=== PATIENT | female | born 1945 | race Caucasian/White ===

== ENCOUNTER 2017-09-25 12:58 | Inpatient (IN) | payer OTHER ==
[~2017-09-25] VITALS: Ht 177.8 cm; Wt 69.0 kg
[~2017-09-25 12:58] MED LIST: ALPR0.254 PO; AMIO200T42 PO; APIX5TAB PO; ASPI-496 PO; ENOX60SY4 SQ; FOLI-17 PO; HYDR-3240 PO; LISI5TAB7 PO; MESA1.2T PO; METH2.5T PO; OXYC-302 PO; SUMA100T4 PO; WARF5TAB PO
[2017-09-25] MEDS ORDERED: CHOL400C11 PO (13:07)
[2017-09-25] MEDS ORDERED: SODIUM CHLORIDE FLUSH 10ML SYR IVF ONE (13:30)
[2017-09-25] MEDS ORDERED: SODIUM CHLORIDE 0.9% 1,000ML IVBOLUS ONE (13:30)
[2017-09-25 13:33] LABS: BASOPHILS # (AUTO) 0.04 x10^3/uL (0-0.1); BASOPHILS % (AUTO) 1 % (0-1); EOSINOPHILS # (AUTO) 0.08 x10^3/uL (0-0.4); EOSINOPHILS % (AUTO) 1 % (1-7); LYMPHOCYTES # (AUTO) 0.64 x10^3/uL (1-3.4); LYMPHOCYTES % (AUTO) 9 % (22-44); MD NO; MEAN CORPUSCULAR HEMOGLOBIN 26.2 pg (27.0-34.8); MEAN CORPUSCULAR HGB CONC 32.8 g/dL (32.4-35.8); MEAN PLATELET VOLUME 7.3 fL (7.4-10.4); MONOCYTES # (AUTO) 0.43 x10^3/uL (0.2-0.8); MONOCYTES % (AUTO) 6 % (2-9); NEUTROPHILS # (AUTO) 5.89 x10^3/uL (1.8-6.8); NEUTROPHILS % (AUTO) 83 % (42-75); PLATELET COUNT 382 x10^3/uL (130-400); RED BLOOD COUNT 3.72 x10^6/uL (3.82-5.3); RED CELL DISTRIBUTION WIDTH 19.5 % (9.6-15.2)
[2017-09-25 13:40] LABS: ALANINE AMINOTRANSFERASE 82 U/L (12-78); ALBUMIN 2.5 g/dL (3.4-5.0); CHLORIDE 85 mmol/L (98-107); CREATININE 0.93 mg/dL (0.55-1.02)
[2017-09-25 13:44] LABS: ALKALINE PHOSPHATASE 110 U/L (45-117); BILIRUBIN,TOTAL 0.7 mg/dL (0.2-1.0); TOTAL PROTEIN 7.1 g/dL (6.4-8.2); TROPONIN I 0.026 ng/mL (0.000-0.045)
[2017-09-25 13:45] LABS: ANION GAP 10 mmol/L (5-15)
[2017-09-25 14:08] LABS: MICROSCOPIC INDICATED
[2017-09-25 14:30] LABS: CULTURE INDICATED? NO
[2017-09-25] MEDS ORDERED: ENOXAPARIN 40 MG/0.4 ML SQ SCH (16:00)
[2017-09-25] MEDS ORDERED: ONDANSETRON 2MG/ML, 2ML IVPush PRN (16:00)
[2017-09-25] MEDS ORDERED: ONDANSETRON ODT 4 MG PO PRN (16:00)
[2017-09-25] MEDS ORDERED: SUMATRIPTAN 100 MG TABLET PO PRN (16:30)
[2017-09-25 17:04] VITALS: BP 149/95
[2017-09-25] MEDS: SODIUM CHLORIDE 0.9% 1,000 ML IV SCH (17:08)
[2017-09-25 20:47] VITALS: BP 149/81
[2017-09-25] MEDS: MESALAMINE 1.2 GM TABLET.DR PO SCH (21:00)
[2017-09-25 22:09] LABS: CREATININE,URINE RANDOM 39.6 mg/dL
[2017-09-26 03:47] VITALS: BP 128/66
[2017-09-26] MEDS: SODIUM CHLORIDE 0.9% 1,000 ML IV SCH (04:20)
[2017-09-26 05:41] LABS: MEAN CORPUSCULAR HEMOGLOBIN 26.9 pg (27.0-34.8); MEAN CORPUSCULAR HGB CONC 32.8 g/dL (32.4-35.8); MEAN PLATELET VOLUME 7.6 fL (7.4-10.4); PLATELET COUNT 370 x10^3/uL (130-400); RED BLOOD COUNT 3.69 x10^6/uL (3.82-5.3); RED CELL DISTRIBUTION WIDTH 19.4 % (9.6-15.2)
[2017-09-26 05:46] LABS: CHLORIDE 92 mmol/L (98-107)
[2017-09-26 05:58] LABS: ALANINE AMINOTRANSFERASE 77 U/L (12-78); ALBUMIN 2.5 g/dL (3.4-5.0); ALKALINE PHOSPHATASE 109 U/L (45-117); ANION GAP 10 mmol/L (5-15); BILIRUBIN,TOTAL 0.7 mg/dL (0.2-1.0); CREATININE 0.85 mg/dL (0.55-1.02); TOTAL PROTEIN 7.2 g/dL (6.4-8.2)
[2017-09-26 06:06] LABS: CLOSTRIDIUM DIFFICILE ANTIGEN NEGATIVE; CLOSTRIDIUM DIFFICILE TOXIN NEGATIVE (Negative)
[2017-09-26 06:23] LABS: BASOPHILS # (AUTO) 0.01 x10^3/uL (0-0.1); BASOPHILS % (AUTO) 0 % (0-1); EOSINOPHILS # (AUTO) 0.09 x10^3/uL (0-0.4); EOSINOPHILS % (AUTO) 1 % (1-7); LYMPHOCYTES # (AUTO) 0.75 x10^3/uL (1-3.4); LYMPHOCYTES % (AUTO) 11 % (22-44); MD SCAN; MONOCYTES % (AUTO) 7 % (2-9); NEUTROPHILS % (AUTO) 81 % (42-75)
[2017-09-26 08:03] VITALS: BP 172/93
[2017-09-26 08:44] LABS: INTERNATIONAL NORMALIZED RATIO 1.09 (0.93-1.1); PROTHROMBIN TIME 11.2 Seconds (9.6-11.5)
[2017-09-26] MEDS: SENNA/DOCUSATE TABLET PO SCH ×2 (09:00→09:10)
[2017-09-26] MEDS ORDERED: APIXABAN 5 MG TABLET PO SCH (09:00)
[2017-09-26] MEDS: MESALAMINE 1.2 GM TABLET.DR PO SCH ×2 (09:00→16:30)
[2017-09-26] MEDS: AMIODARONE 200 MG TABLET PO SCH (09:08)
[2017-09-26] MEDS: FOLIC ACID 1 MG TABLET PO SCH (09:09)
[2017-09-26] MEDS: LISINOPRIL 5 MG TABLET PO SCH (09:10)
[2017-09-26] MEDS ORDERED: OMNIPAQUE 350 MG/ML, 100ML BOTTLE ONE (12:13)
[2017-09-26 13:28] LABS: ANION GAP 10 mmol/L (5-15); CALCIUM 7.9 mg/dL (8.5-10.1); CHLORIDE 88 mmol/L (98-107); CREATININE 0.85 mg/dL (0.55-1.02)
[2017-09-26 14:00] VITALS: BP 152/96
[2017-09-26] MEDS ORDERED: FENTANYL PF 100 MCG/2ML ONE (14:24)
[2017-09-26] MEDS ORDERED: NALOXONE 1 MG/ML, 2ML ONE (14:25)
[2017-09-26] MEDS ORDERED: HEPARIN 25,000 UNITS/500ML PMX 500 ML IV PRN (18:00)
[2017-09-26] MEDS ORDERED: HEPARIN 5,000 UNITS/ML, 1ML IV ONE (18:00)
[2017-09-26 19:32] VITALS: BP 161/85
[2017-09-27 02:14] VITALS: BP 174/109
[2017-09-27] MEDS: LABETALOL 5MG/ML, 20ML IVPush PRN (02:20)
[2017-09-27 02:43] VITALS: BP 147/85
[2017-09-27 02:46] LABS: BASOPHILS # (AUTO) 0.03 x10^3/uL (0-0.1); BASOPHILS % (AUTO) 1 % (0-1); EOSINOPHILS # (AUTO) 0.08 x10^3/uL (0-0.4); EOSINOPHILS % (AUTO) 1 % (1-7); LYMPHOCYTES # (AUTO) 0.66 x10^3/uL (1-3.4); LYMPHOCYTES % (AUTO) 12 % (22-44); MD NO; MEAN CORPUSCULAR HEMOGLOBIN 26.3 pg (27.0-34.8); MEAN CORPUSCULAR HGB CONC 32.5 g/dL (32.4-35.8); MEAN CORPUSCULAR VOLUME 80.9 fL (80-100); MEAN PLATELET VOLUME 7.2 fL (7.4-10.4); MONOCYTES # (AUTO) 0.45 x10^3/uL (0.2-0.8); MONOCYTES % (AUTO) 8 % (2-9); NEUTROPHILS # (AUTO) 4.37 x10^3/uL (1.8-6.8); NEUTROPHILS % (AUTO) 78 % (42-75); PLATELET COUNT 341 x10^3/uL (130-400); RED BLOOD COUNT 3.43 x10^6/uL (3.82-5.3); RED CELL DISTRIBUTION WIDTH 19.9 % (9.6-15.2)
[2017-09-27 02:47] LABS: ALBUMIN 2.4 g/dL (3.4-5.0); ANION GAP 10 mmol/L (5-15); CALCIUM 7.8 mg/dL (8.5-10.1); CHLORIDE 91 mmol/L (98-107); CREATININE 0.72 mg/dL (0.55-1.02)
[2017-09-27] MEDS: HEPARIN 5,000 UNITS/ML, 1ML IV PRN ×2 (03:38→11:15)
[2017-09-27 06:35] VITALS: BP 131/74
[2017-09-27] MEDS: MESALAMINE 1.2 GM TABLET.DR PO SCH ×2 (07:30→16:30)
[2017-09-27] MEDS ORDERED: MAGNESIUM SULFATE PMX 2GM/50ML 50 ML IV ONE (08:30)
[2017-09-27] MEDS: AMIODARONE 200 MG TABLET PO SCH (08:44)
[2017-09-27] MEDS: SENNA/DOCUSATE TABLET PO SCH (08:45)
[2017-09-27] MEDS: FOLIC ACID 1 MG TABLET PO SCH (08:45)
[2017-09-27] MEDS: LISINOPRIL 5 MG TABLET PO SCH (08:45)
[2017-09-27 14:15] VITALS: BP 138/85
[2017-09-27 15:38] LABS: ANION GAP 11 mmol/L (5-15); CALCIUM 7.7 mg/dL (8.5-10.1); CHLORIDE 86 mmol/L (98-107)
[2017-09-27 18:25] VITALS: BP 165/100
[2017-09-27 19:30] LABS: ANION GAP 10 mmol/L (5-15); CALCIUM 7.6 mg/dL (8.5-10.1); CHLORIDE 87 mmol/L (98-107); CREATININE 0.83 mg/dL (0.55-1.02)
[2017-09-27] MEDS: APIXABAN 5 MG TABLET PO SCH (21:48)
[2017-09-27 23:46] LABS: ANION GAP 7 mmol/L (5-15); CALCIUM 8.1 mg/dL (8.5-10.1); CHLORIDE 87 mmol/L (98-107); CREATININE 0.87 mg/dL (0.55-1.02)
[2017-09-28 00:24] LABS: CREATININE,URINE RANDOM 98.7 mg/dL
[2017-09-28 01:20] VITALS: BP 146/93
[2017-09-28 05:30] LABS: BASOPHILS # (AUTO) 0.01 x10^3/uL (0-0.1); BASOPHILS % (AUTO) 0 % (0-1); EOSINOPHILS # (AUTO) 0.07 x10^3/uL (0-0.4); EOSINOPHILS % (AUTO) 1 % (1-7); LYMPHOCYTES # (AUTO) 0.64 x10^3/uL (1-3.4); LYMPHOCYTES % (AUTO) 11 % (22-44); MD NO; MEAN CORPUSCULAR HEMOGLOBIN 27.1 pg (27.0-34.8); MEAN CORPUSCULAR HGB CONC 32.9 g/dL (32.4-35.8); MEAN CORPUSCULAR VOLUME 82.4 fL (80-100); MEAN PLATELET VOLUME 7.4 fL (7.4-10.4); MONOCYTES # (AUTO) 0.48 x10^3/uL (0.2-0.8); MONOCYTES % (AUTO) 8 % (2-9); NEUTROPHILS # (AUTO) 4.78 x10^3/uL (1.8-6.8); NEUTROPHILS % (AUTO) 80 % (42-75); PLATELET COUNT 346 x10^3/uL (130-400); RED BLOOD COUNT 3.28 x10^6/uL (3.82-5.3)
[2017-09-28 05:43] LABS: ALBUMIN 2.5 g/dL (3.4-5.0); ANION GAP 10 mmol/L (5-15); CALCIUM 7.8 mg/dL (8.5-10.1); CHLORIDE 88 mmol/L (98-107)
[2017-09-28 05:48] LABS: ALANINE AMINOTRANSFERASE 148 U/L (12-78); ALKALINE PHOSPHATASE 175 U/L (45-117); BILIRUBIN,TOTAL 0.5 mg/dL (0.2-1.0); CREATININE 0.79 mg/dL (0.55-1.02); TOTAL PROTEIN 7.1 g/dL (6.4-8.2)
[2017-09-28 07:00] VITALS: BP 148/91
[2017-09-28] MEDS: SENNA/DOCUSATE TABLET PO SCH (08:08)
[2017-09-28] MEDS: LISINOPRIL 5 MG TABLET PO SCH (08:08)
[2017-09-28] MEDS: AMIODARONE 200 MG TABLET PO SCH (08:08)
[2017-09-28] MEDS: FOLIC ACID 1 MG TABLET PO SCH (08:08)
[2017-09-28] MEDS: MESALAMINE 1.2 GM TABLET.DR PO SCH ×2 (08:08→17:36)
[2017-09-28] MEDS: APIXABAN 5 MG TABLET PO SCH ×2 (08:09→20:39)
[2017-09-28 12:15] VITALS: BP 154/92
[2017-09-28 14:36] LABS: ANION GAP 8 mmol/L (5-15); CALCIUM 8.1 mg/dL (8.5-10.1); CHLORIDE 87 mmol/L (98-107); CREATININE 0.92 mg/dL (0.55-1.02)
[2017-09-28 21:26] VITALS: BP 154/93
[2017-09-28 22:33] LABS: ANION GAP 7 mmol/L (5-15); CALCIUM 7.9 mg/dL (8.5-10.1); CHLORIDE 87 mmol/L (98-107); CREATININE 0.85 mg/dL (0.55-1.02)
[2017-09-29 03:04] VITALS: BP 153/82
[2017-09-29 05:17] LABS: BASOPHILS # (AUTO) 0.02 x10^3/uL (0-0.1); BASOPHILS % (AUTO) 0 % (0-1); EOSINOPHILS # (AUTO) 0.09 x10^3/uL (0-0.4); EOSINOPHILS % (AUTO) 1 % (1-7); LYMPHOCYTES # (AUTO) 0.68 x10^3/uL (1-3.4); LYMPHOCYTES % (AUTO) 11 % (22-44); MD NO; MEAN CORPUSCULAR HEMOGLOBIN 26.9 pg (27.0-34.8); MEAN CORPUSCULAR VOLUME 81.4 fL (80-100); MONOCYTES # (AUTO) 0.53 x10^3/uL (0.2-0.8); MONOCYTES % (AUTO) 8 % (2-9); NEUTROPHILS # (AUTO) 5.08 x10^3/uL (1.8-6.8); NEUTROPHILS % (AUTO) 80 % (42-75); PLATELET COUNT 342 x10^3/uL (130-400); RED BLOOD COUNT 3.29 x10^6/uL (3.82-5.3); RED CELL DISTRIBUTION WIDTH 19.3 % (9.6-15.2)
[2017-09-29 05:21] LABS: ALANINE AMINOTRANSFERASE 136 U/L (12-78); ALBUMIN 2.5 g/dL (3.4-5.0); ANION GAP 8 mmol/L (5-15); CALCIUM 7.8 mg/dL (8.5-10.1); CHLORIDE 86 mmol/L (98-107); CREATININE 0.73 mg/dL (0.55-1.02)
[2017-09-29 05:39] LABS: % IRON SATURATION 6 % (20-55); ALKALINE PHOSPHATASE 172 U/L (45-117); BILIRUBIN,TOTAL 0.6 mg/dL (0.2-1.0); IRON LEVEL 23 mcg/dL (50-170); TOTAL IRON BINDING CAPACITY 399 mcg/dL (250-450); TOTAL PROTEIN 6.8 g/dL (6.4-8.2)
[2017-09-29 07:55] VITALS: BP 166/99
[2017-09-29] MEDS: LISINOPRIL 5 MG TABLET PO SCH (08:37)
[2017-09-29] MEDS: FOLIC ACID 1 MG TABLET PO SCH (08:38)
[2017-09-29] MEDS: APIXABAN 5 MG TABLET PO SCH ×2 (08:38→20:44)
[2017-09-29] MEDS: SENNA/DOCUSATE TABLET PO SCH ×2 (08:38→08:42)
[2017-09-29] MEDS: AMIODARONE 200 MG TABLET PO SCH (08:38)
[2017-09-29] MEDS: MESALAMINE 1.2 GM TABLET.DR PO SCH ×2 (08:38→17:14)
[2017-09-29 10:22] LABS: MICROSCOPIC INDICATED
[2017-09-29 10:26] LABS: OCCULT BLOOD NEGATIVE (NEGATIVE)
[2017-09-29] MEDS: IRON SUCROSE COMPLEX 100MG/5ML IV SCH (10:28)
[2017-09-29 10:33] LABS: CREATININE,URINE RANDOM 36.7 mg/dL
[2017-09-29 14:10] VITALS: BP 163/102
[2017-09-29] MEDS ORDERED: LISINOPRIL 10 MG TABLET PO ONE (14:30)
[2017-09-29 14:49] LABS: ALBUMIN 2.7 g/dL (3.4-5.0); ANION GAP 10 mmol/L (5-15); CALCIUM 8.3 mg/dL (8.5-10.1); CHLORIDE 85 mmol/L (98-107)
[2017-09-29 17:16] VITALS: BP 169/97
[2017-09-29 20:30] VITALS: BP_SYST 170; BP_SYST 175; BP_DIAS 100
[2017-09-29] MEDS ORDERED: LISINOPRIL 10 MG TABLET PO SCH (21:00)
[2017-09-30] VITALS (8 sets, daily range): BP systolic 139–185; BP diastolic 81–118
[2017-09-30] MEDS: LABETALOL 5MG/ML, 20ML IVPush PRN ×2 (01:48→13:20)
[2017-09-30 05:21] LABS: MEAN CORPUSCULAR HEMOGLOBIN 26.5 pg (27.0-34.8); MEAN CORPUSCULAR HGB CONC 32.4 g/dL (32.4-35.8); MEAN CORPUSCULAR VOLUME 81.6 fL (80-100); MEAN PLATELET VOLUME 6.7 fL (7.4-10.4); PLATELET COUNT 349 x10^3/uL (130-400); RED CELL DISTRIBUTION WIDTH 19.7 % (9.6-15.2)
[2017-09-30 05:23] LABS: ALANINE AMINOTRANSFERASE 123 U/L (12-78); ALBUMIN 2.5 g/dL (3.4-5.0); ANION GAP 9 mmol/L (5-15); CALCIUM 7.9 mg/dL (8.5-10.1); CHLORIDE 86 mmol/L (98-107)
[2017-09-30 05:26] LABS: ALKALINE PHOSPHATASE 152 U/L (45-117); BILIRUBIN,TOTAL 0.7 mg/dL (0.2-1.0); CREATININE 0.75 mg/dL (0.55-1.02); TOTAL PROTEIN 6.8 g/dL (6.4-8.2)
[2017-09-30 06:15] LABS: BASOPHILS # (AUTO) 0.02 x10^3/uL (0-0.1); BASOPHILS % (AUTO) 0 % (0-1); EOSINOPHILS % (AUTO) 2 % (1-7); LYMPHOCYTES # (AUTO) 0.55 x10^3/uL (1-3.4); LYMPHOCYTES % (AUTO) 10 % (22-44); MD SCAN; MONOCYTES # (AUTO) 0.47 x10^3/uL (0.2-0.8); MONOCYTES % (AUTO) 9 % (2-9); NEUTROPHILS # (AUTO) 4.29 x10^3/uL (1.8-6.8); NEUTROPHILS % (AUTO) 79 % (42-75)
[2017-09-30] MEDS: SENNA/DOCUSATE TABLET PO SCH (08:13)
[2017-09-30] MEDS ORDERED: LISINOPRIL 10 MG TABLET ONE (08:16)
[2017-09-30] MEDS: APIXABAN 5 MG TABLET PO SCH (08:24)
[2017-09-30] MEDS: FOLIC ACID 1 MG TABLET PO SCH (08:24)
[2017-09-30] MEDS: LISINOPRIL 20 MG TABLET PO SCH ×2 (08:24→20:06)
[2017-09-30] MEDS: MESALAMINE 1.2 GM TABLET.DR PO SCH ×3 (08:24→20:06)
[2017-09-30] MEDS: AMIODARONE 200 MG TABLET PO SCH (08:24)
[2017-09-30] MEDS: IRON SUCROSE COMPLEX 100MG/5ML IV SCH (08:25)
[2017-09-30] MEDS ORDERED: AMLODIPINE 5 MG TABLET PO ONE (15:00)
[2017-10-01] VITALS (7 sets, daily range): BP systolic 132–174; BP diastolic 84–97
[2017-10-01] MEDS: LABETALOL 5MG/ML, 20ML IVPush PRN (00:48)
[2017-10-01 05:58] LABS: BASOPHILS # (AUTO) 0.02 x10^3/uL (0-0.1); BASOPHILS % (AUTO) 0 % (0-1); EOSINOPHILS # (AUTO) 0.14 x10^3/uL (0-0.4); EOSINOPHILS % (AUTO) 2 % (1-7); LYMPHOCYTES # (AUTO) 0.79 x10^3/uL (1-3.4); LYMPHOCYTES % (AUTO) 12 % (22-44); MD NO; MEAN CORPUSCULAR VOLUME 81.8 fL (80-100); MEAN PLATELET VOLUME 7.1 fL (7.4-10.4); MONOCYTES # (AUTO) 0.64 x10^3/uL (0.2-0.8); MONOCYTES % (AUTO) 9 % (2-9); NEUTROPHILS # (AUTO) 5.27 x10^3/uL (1.8-6.8); NEUTROPHILS % (AUTO) 77 % (42-75); PLATELET COUNT 354 x10^3/uL (130-400); RED BLOOD COUNT 3.49 x10^6/uL (3.82-5.3); RED CELL DISTRIBUTION WIDTH 20.3 % (9.6-15.2)
[2017-10-01 06:10] LABS: CHLORIDE 90 mmol/L (98-107)
[2017-10-01 06:17] LABS: ALBUMIN 2.6 g/dL (3.4-5.0); ANION GAP 11 mmol/L (5-15); CALCIUM 8.3 mg/dL (8.5-10.1); CREATININE 0.83 mg/dL (0.55-1.02)
[2017-10-01] MEDS: SENNA/DOCUSATE TABLET PO SCH (08:51)
[2017-10-01] MEDS: AMIODARONE 200 MG TABLET PO SCH (08:59)
[2017-10-01] MEDS: AMLODIPINE 5 MG TABLET PO SCH ×2 (08:59→20:19)
[2017-10-01] MEDS: MESALAMINE 1.2 GM TABLET.DR PO SCH ×2 (08:59→18:08)
[2017-10-01] MEDS: FOLIC ACID 1 MG TABLET PO SCH (08:59)
[2017-10-01] MEDS: IRON SUCROSE COMPLEX 100MG/5ML IV SCH (09:00)
[2017-10-01] MEDS ORDERED: FUROSEMIDE 40 MG TABLET PO SCH (09:00)
[2017-10-01] MEDS ORDERED: AMLODIPINE 5 MG TABLET PO SCH (09:00)
[2017-10-01] MEDS: LISINOPRIL 20 MG TABLET PO SCH ×2 (09:00→20:19)
[2017-10-01 11:40] LABS: MICROSCOPIC AUTO
[2017-10-01 11:45] LABS: CHLORIDE,URINE RANDOM 112 mmol/L; POTASSIUM,URINE RANDOM 44 mmol/L; SODIUM,URINE RANDOM 99 mmol/L
[2017-10-01 12:36] LABS: OSMOLALITY,URINE 456 mOsm/kg (500-850)
[2017-10-02 01:55] VITALS: BP 138/80
[2017-10-02 05:00] LABS: BASOPHILS # (AUTO) 0.03 x10^3/uL (0-0.1); BASOPHILS % (AUTO) 1 % (0-1); EOSINOPHILS # (AUTO) 0.13 x10^3/uL (0-0.4); EOSINOPHILS % (AUTO) 2 % (1-7); LYMPHOCYTES # (AUTO) 0.95 x10^3/uL (1-3.4); LYMPHOCYTES % (AUTO) 16 % (22-44); MD NO; MEAN CORPUSCULAR HEMOGLOBIN 27.1 pg (27.0-34.8); MEAN CORPUSCULAR HGB CONC 32.9 g/dL (32.4-35.8); MEAN CORPUSCULAR VOLUME 82.4 fL (80-100); MEAN PLATELET VOLUME 6.5 fL (7.4-10.4); MONOCYTES # (AUTO) 0.52 x10^3/uL (0.2-0.8); MONOCYTES % (AUTO) 9 % (2-9); NEUTROPHILS # (AUTO) 4.47 x10^3/uL (1.8-6.8); NEUTROPHILS % (AUTO) 73 % (42-75); PLATELET COUNT 350 x10^3/uL (130-400); RED BLOOD COUNT 4.21 x10^6/uL (3.82-5.3); RED CELL DISTRIBUTION WIDTH 20.8 % (9.6-15.2)
[2017-10-02 05:09] LABS: CALCIUM 8.4 mg/dL (8.5-10.1); CHLORIDE 93 mmol/L (98-107)
[2017-10-02 05:15] LABS: ALANINE AMINOTRANSFERASE 92 U/L (12-78); ALBUMIN 2.8 g/dL (3.4-5.0); ALKALINE PHOSPHATASE 147 U/L (45-117); ANION GAP 8 mmol/L (5-15); BILIRUBIN,TOTAL 0.6 mg/dL (0.2-1.0); CREATININE 1.27 mg/dL (0.55-1.02); TOTAL PROTEIN 7.3 g/dL (6.4-8.2)
[2017-10-02 06:49] VITALS: BP 136/76
[2017-10-02] MEDS ORDERED: NALOXONE 1 MG/ML, 2ML ONE (07:52)
[2017-10-02] MEDS ORDERED: MIDAZOLAM 1 MG/ML, 5ML ONE (07:52)
[2017-10-02] MEDS ORDERED: FLUMAZENIL 0.1 MG/1 ML, 5ML ONE (07:52)
[2017-10-02] MEDS ORDERED: FENTANYL PF 100 MCG/2ML ONE (07:52)
[2017-10-02] MEDS: SENNA/DOCUSATE TABLET PO SCH (09:00)
[2017-10-02] MEDS: LISINOPRIL 20 MG TABLET PO SCH ×2 (09:57→20:50)
[2017-10-02] MEDS: AMIODARONE 200 MG TABLET PO SCH (09:57)
[2017-10-02] MEDS: MESALAMINE 1.2 GM TABLET.DR PO SCH ×2 (09:57→16:44)
[2017-10-02] MEDS: AMLODIPINE 5 MG TABLET PO SCH ×2 (09:57→20:50)
[2017-10-02] MEDS: FOLIC ACID 1 MG TABLET PO SCH (09:57)
[2017-10-02] MEDS: IRON SUCROSE COMPLEX 100MG/5ML IV SCH (09:57)
[2017-10-02 12:54] VITALS: BP 123/77
[2017-10-02 18:41] VITALS: BP 130/81
[2017-10-03 02:22] VITALS: BP 139/83
[2017-10-03 05:17] LABS: BASOPHILS # (AUTO) 0.02 x10^3/uL (0-0.1); BASOPHILS % (AUTO) 0 % (0-1); EOSINOPHILS # (AUTO) 0.13 x10^3/uL (0-0.4); EOSINOPHILS % (AUTO) 2 % (1-7); LYMPHOCYTES # (AUTO) 0.79 x10^3/uL (1-3.4); LYMPHOCYTES % (AUTO) 12 % (22-44); MD NO; MEAN CORPUSCULAR HEMOGLOBIN 26.5 pg (27.0-34.8); MEAN CORPUSCULAR HGB CONC 32.2 g/dL (32.4-35.8); MEAN CORPUSCULAR VOLUME 82.5 fL (80-100); MEAN PLATELET VOLUME 6.8 fL (7.4-10.4); MONOCYTES % (AUTO) 9 % (2-9); NEUTROPHILS # (AUTO) 5.09 x10^3/uL (1.8-6.8); NEUTROPHILS % (AUTO) 77 % (42-75); PLATELET COUNT 313 x10^3/uL (130-400); RED BLOOD COUNT 3.88 x10^6/uL (3.82-5.3); RED CELL DISTRIBUTION WIDTH 21.6 % (9.6-15.2)
[2017-10-03 05:20] LABS: CHLORIDE 99 mmol/L (98-107)
[2017-10-03 05:30] LABS: ALBUMIN 2.7 g/dL (3.4-5.0); ANION GAP 6 mmol/L (5-15); CALCIUM 8.5 mg/dL (8.5-10.1); CREATININE 1.08 mg/dL (0.55-1.02)
[2017-10-03] MEDS: FOLIC ACID 1 MG TABLET PO SCH (08:11)
[2017-10-03] MEDS: AMLODIPINE 5 MG TABLET PO SCH (08:11)
[2017-10-03] MEDS: LISINOPRIL 20 MG TABLET PO SCH (08:11)
[2017-10-03] MEDS: AMIODARONE 200 MG TABLET PO SCH (08:11)
[2017-10-03] MEDS: SENNA/DOCUSATE TABLET PO SCH (08:12)
[2017-10-03] MEDS: IRON SUCROSE COMPLEX 100MG/5ML IV SCH (08:12)
[2017-10-03] MEDS: MESALAMINE 1.2 GM TABLET.DR PO SCH (08:19)
[2017-10-03 09:00] VITALS: BP 127/79
[2017-10-03] MEDS ORDERED: FUROSEMIDE 20 MG TABLET PO SCH (09:00)
[2017-10-03] MEDS ORDERED: APIXABAN 5 MG TABLET PO SCH (10:00)
[2017-10-03] MEDS ORDERED: LISI-170 PO (11:33)
[2017-10-03] MEDS ORDERED: FURO20TA3 PO (11:33)
[2017-10-03] MEDS ORDERED: AMLO5TAB2 PO (11:33)
== END 2017-10-03 14:55 | disposition home or self-care (01) | DRG 564 ==
LOC: ED 14:52 → EDIP 14:53 → ED 15:02 → 4EST 17:12 → 3NW 10-01 14:11
PROVIDERS: ADMIT Internal Medicine Pulmonary Disease; ATTEND Internal Medicine Pulmonary Disease
PROC: 01B Peripheral Nervous System, Excision (ICD-10-PCS; principal; 2017-09-26)
PROC: 01B Peripheral Nervous System, Excision (ICD-10-PCS; 2017-09-26)
DX: D36.10 Benign neoplasm of peripheral nerves and autonomic nervous system, unspecified (principal); E43 Unspecified severe protein-calorie malnutrition; C78.01 Secondary malignant neoplasm of right lung; C78.02 Secondary malignant neoplasm of left lung; E22.2 Syndrome of inappropriate secretion of antidiuretic hormone; D68.69 Other thrombophilia; E83.42 Hypomagnesemia; C78.7 Secondary malignant neoplasm of liver and intrahepatic bile duct; C79.89 Secondary malignant neoplasm of other specified sites; K51.90 Ulcerative colitis, unspecified, without complications; I47.1 Supraventricular tachycardia; I27.20 Pulmonary hypertension, unspecified; I48.91 Unspecified atrial fibrillation; C80.1 Malignant (primary) neoplasm, unspecified; D64.9 Anemia, unspecified; M06.9 Rheumatoid arthritis, unspecified; R62.7 Adult failure to thrive; G43.909 Migraine, unspecified, not intractable, without status migrainosus; G89.29 Other chronic pain; G51.0 Bell's palsy; I12.9 Hypertensive chronic kidney disease with stage 1 through stage 4 chronic kidney disease, or unspecified chronic kidney disease; N18.3 Chronic kidney disease, stage 3 (moderate); R31.0 Gross hematuria; Z79.01 Long term (current) use of anticoagulants; Z79.899 Other long term (current) drug therapy; Z80.3 Family history of malignant neoplasm of breast; Z82.49 Family history of ischemic heart disease and other diseases of the circulatory system; Z86.718 Personal history of other venous thrombosis and embolism; Z95.5 Presence of coronary angioplasty implant and graft; Z68.21 Body mass index [BMI] 21.0-21.9, adult
CPT/HCPCS: 36415; 49180; 70450; 71045; 71260; 74176; 74177; 76770; 77012; 80048; 80053; 80069; 81001; 82040; 82272; 82306; 82330; 82436; 82533; 82570; 82728; 82784; 83540; 83550; 83735; 83930; 83935; 83970; 84100; 84133; 84155; 84156; 84165; 84166; 84300; 84439; 84443; 84484; 84550; 85014; 85018; 85025; 85520; 85610; 85730; 86160; 86162; 86334; 86335; 87324; 88305; 88341; 88342; 93005; 93306; 93970; 96360; 99156; 99157; J1644; J1756; J2250; J2405; J3010; Q9967; G0461; J2310; J3475; J7030